=== PATIENT | male | born 1990 | race African-American/Black ===

== ENCOUNTER 2022-05-08 11:07 | Emergency (ER) | payer OTHER ==
[~2022-05-08] VITALS: Ht 160 cm; Wt 61.0 kg
[2022-05-08] MEDS ORDERED: MORPHINE SULFATE 4 MG/ML CPJ (NOT FOR IM USE) IV STA (11:16)
[2022-05-08] MEDS ORDERED: ONDANSETRON HCL 4MG/2ML INJ IV STA (11:16)
[2022-05-08] MEDS ORDERED: SODIUM CHLORIDE 0.9% 1,000 ML IV ONE (11:30)
[2022-05-08 12:04] LABS: HEMATOCRIT. 47.9 % (42.0-52.0); MEAN CORPUSCULAR HEMOGLOBIN 28.7 pg (28.0-32.0); MEAN CORPUSCULAR VOLUME 85.9 fL (80.0-94.0); MEAN PLATELET VOLUME 8.5 fl (7.4-10.4); PLATELET 259 x1000/uL (130-400); RED BLOOD CELL COUNT 5.58 mill/uL (4.7-6.1); RED CELL DISTRIBUTION WIDTH 14.6 % (11.6-14.6)
[2022-05-08 12:12] LABS: CHLORIDE 109 mEq/L (98-107)
[2022-05-08 12:18] LABS: ETHANOL BLOOD < 10 mg/dL
[2022-05-08 12:24] LABS: PLATELET ESTIMATE NORMAL
[2022-05-08] MEDS ORDERED: MORPHINE SULFATE 4 MG/ML CPJ (NOT FOR IM USE) IV ONE (13:00)
[2022-05-08] MEDS ORDERED: KETOROLAC 15MG/ML VIAL IV ONE (13:00)
[2022-05-08 13:28] LABS: CLARITY URINE CLEAR (CLEAR); COLOR URINE YELLOW (YELLOW); KETONES URINE NEGATIVE (NEGATIVE); LEUKOCYTE ESTERASE URINE NEGATIVE (NEGATIVE); NITRITE URINE NEGATIVE (NEGATIVE); OCCULT BLOOD URINE NEGATIVE (NEGATIVE); PH URINE 7.5 (4.5-8.0); PROTEIN URINE NEGATIVE (NEGATIVE); SPECIFIC GRAVITY URINE 1.016 (1.005-1.030); UROBILINOGEN URINE 0.2 E.U./dL (0.2-1.0)
[2022-05-08 13:48] LABS: *AMPHETAMINES SCREEN URINE NEGATIVE (NEGATIVE); *BARBITURATES SCREEN URINE NEGATIVE (NEGATIVE); *BENZODIAZEPINES SCREEN URINE NEGATIVE (NEGATIVE); *COCAINE SCREEN URINE NEGATIVE (NEGATIVE); CANNABINOID URINE SCREEN PRESUMTIVE POSITIVE (NEGATIVE); METHADONE URINE SCREEN NEGATIVE (NEGATIVE); OPIATES URINE SCREEN PRESUMTIVE POSITIVE (NEGATIVE); PHENCYCLIDINE URINE SCREEN NEGATIVE (NEGATIVE)
[2022-05-08] MEDS ORDERED: TOPUD MT (13:51)
[2022-05-08] MEDS ORDERED: ONDA4TAB50 PO (13:51)
[2022-05-08 14:00] VITALS: BP 142/92
== END 2022-05-08 15:20 | disposition home or self-care (01) ==
LOC: ER 11:07
DX: R10.84 Generalized abdominal pain (principal); R11.10 Vomiting, unspecified
CPT/HCPCS: 36415; 74176; 80053; 80305; 80320; 81003; 83690; 85025; 85044; 96361; 96374; 96375; 96376; 99285; J2270; J2405; J7030; Z7610; G0480